=== PATIENT | male | born 1955 | race Asian ===

== ENCOUNTER 2022-02-16 17:46 | Inpatient (IN) | payer MEDICARE, MEDICAID ==
[~2022-02-16] VITALS: Ht 165.1 cm; Wt 56.8 kg
[2022-02-16] MEDS ORDERED: ibuprofen 200mg tablet PO ONE (18:05)
[2022-02-16] MEDS ORDERED: normal saline 1000ML IV soln IV ONE ×2 (18:15→18:35)
[2022-02-16] MEDS ORDERED: CefTRIAXone 2gm/D5W 50ml BAG 50 ML IV ONE (18:35)
[2022-02-16] MEDS ORDERED: methylPREDNISolone sod succ 125mg/2ml vial IV ONE (18:35)
[2022-02-16] MEDS ORDERED: magnesium 2GM in 50ml NS 50 ML IV ONE (18:35)
[2022-02-16 19:02] LABS: BASOPHILS # (AUTO) 0.1 X10'3 (0-0.2); BASOPHILS % (AUTO) 0.6 % (0-1); EOSINOPHILS # (AUTO) 0.2 X10'3 (0-0.9); EOSINOPHILS % (AUTO) 2.1 % (0-6); HEMATOCRIT 43.6 % (42.0-52.0); HEMOGLOBIN 13.9 g/dl (14.0-17.9); LYMPHOCYTES # (AUTO) 0.8 X10'3 (1.1-4.8); LYMPHOCYTES % (AUTO) 7.5 % (21-51); MEAN CORPUSCULAR HEMOGLOBIN 22.4 PG (27.0-31.0); MEAN CORPUSCULAR HGB CONC 31.9 g/dL (33.0-36.5); MEAN PLATELET VOLUME 7.8 FL (7.4-10.4); MONOCYTES # (AUTO) 0.6 X10'3 (0-0.9); MONOCYTES % (AUTO) 6.1 % (2-12); NEUTROPHILS # (AUTO) 8.8 X10'3 (1.8-7.7); NEUTROPHILS % (AUTO) 83.7 % (42-75); PLATELET COUNT 182 X10'3 (140-440); RED BLOOD COUNT 6.23 X10'6 (4.70-6.10); RED CELL DISTRIBUTION WIDTH 15.3 % (11.5-14.5); WHITE BLOOD COUNT 10.5 X10'3 (4.5-11.0)
[2022-02-16 19:20] LABS: ALANINE AMINOTRANSFERASE 30 U/L (12-78); ALBUMIN 3.4 G/DL (3.4-5.0); ALBUMIN/GLOBULIN RATIO 0.8 (1.1-1.5); ALKALINE PHOSPHATASE 91 IU/L (46-116); ANION GAP 5 (8-16); ASPARTATE AMINO TRANSFERASE 36 U/L (10-37); BILIRUBIN,TOTAL 0.3 MG/DL (0.1-1.0); BLOOD UREA NITROGEN 14 MG/DL (7-18); BUN/CREATININE RATIO 16.7 (5.4-32.0); CALCIUM 8.3 MG/DL (8.5-10.1); CHLORIDE 99 MMOL/L (99-107); CREATININE 0.84 MG/DL (0.60-1.10); GLUCOSE 104 MG/DL (70-104); POTASSIUM 4.2 MMOL/L (3.5-5.1); SODIUM 133 MMOL/L (135-145); TOTAL PROTEIN 7.5 G/DL (6.4-8.2); eGFR > 90 ML/MIN
[2022-02-16] MEDS ORDERED: albuterol 2.5 MG/3 ML nebule CONTNEB PRN (19:25)
[2022-02-16] MEDS ORDERED: ipratropium 0.5 MG/2.5ML nebule IH ONE (19:25)
[2022-02-16] MEDS ORDERED: oseltamivir phos 75mg capsule PO ONE (20:15)
[2022-02-16] MEDS ORDERED: mag hydrox/Alum hydrox/simeth 30ml oral suspension PO PRN (20:15)
[2022-02-16] MEDS ORDERED: HYDROcodone/acetaminophen 5mg/325mg tablet PO PRN (20:15)
[2022-02-16] MEDS ORDERED: ondansetron/PF 4mg/2ml inj IV PRN (20:15)
[2022-02-16] MEDS ORDERED: magnesium hydroxide 30ml (MOM) UD suspension PO PRN (20:15)
[2022-02-16] MEDS ORDERED: morphine 2 MG/ML inj. syringe IV PRN ×2 (20:15)
[2022-02-16] MEDS ORDERED: acetaminophen 325mg tablet PO PRN ×2 (20:15)
--- NOTE | 2022-02-16 21:15 | NUR ---
used the turnstile collector device in the pt room. there was no knockout machine operator option at this time for greg. call daughter for translation purposes.
--- NOTE | 2022-02-16 21:33 | NUR ---
I HAVE REVIEWED AND AGREE WITH [employer] VEHICLE DRIVER'S ASSESSMENT.
[2022-02-16 22:39] LABS: CLARITY,URINE CLEAR (Clear); COLOR,URINE STRAW (Yellow); GLUCOSE, URINE NEGATIVE (Neg); KETONES,URINE TRACE mg/dl (Neg); LEUKOCYTE ESTERASE ,URINE NEGATIVE (Neg); NITRITES, URINE NEGATIVE (Neg); OCCULT BLOOD,URINE TRACE-INTACT (Neg); PH,URINE 5.5 (4.8-8.0); PROTEIN,URINE NEGATIVE (Neg); UROBILINOGEN,URINE 0.2 E.U/dL (0.2-1.0)
[2022-02-16 22:44] LABS: SQUAMOUS EPITHELIAL CELL,UR FEW /LPF (FEW); UA COLLECTION TYPE VOIDED
[2022-02-16 22:45] LABS: BACTERIA,URINE NONE SEEN /HPF (Neg); RBC,URINE 0-2 /HPF (0-2); WBC,URINE 0-4 /HPF (0-4)
--- NOTE | 2022-02-16 23:17 | NUR ---
"ANA"-DAUGHTER/BELL STAFF: PHONE NUMBER [phone] Addendum: 02/16/22 at 2330 by AIMEUVAL GRIS -DAUGHTER/BELL STAFF: PHONE NUMBER [phone]
--- NOTE | 2022-02-16 23:31 | NUR ---
SPOKE WITH DAUGHTER REGARDING MEDICATION PT TAKES. PT IS CURRENTLY TAKING TYLENOL AT HOME FOR PAIN. NO OTHER MEDS LISTED AT THIS TIME. WILL UPDATE LIST NEEDED.
--- NOTE | 2022-02-17 00:49 | NUR ---
PT WAS MOVED FROM [facility] TO [facility] BED
[2022-02-17 07:28] LABS: BASOPHILS % (AUTO) 0.1 % (0-1); EOSINOPHILS % (AUTO) 0 % (0-6); LYMPHOCYTES # (AUTO) 0.5 X10'3 (1.1-4.8); MEAN PLATELET VOLUME 8.1 FL (7.4-10.4); MONOCYTES # (AUTO) 0.7 X10'3 (0-0.9); MONOCYTES % (AUTO) 5.2 % (2-12); NEUTROPHILS # (AUTO) 11.4 X10'3 (1.8-7.7); NEUTROPHILS % (AUTO) 90.7 % (42-75); PLATELET COUNT 187 X10'3 (140-440); WHITE BLOOD COUNT 12.6 X10'3 (4.5-11.0)
[2022-02-17 07:50] LABS: ALBUMIN 2.8 G/DL (3.4-5.0); ANION GAP 9 (8-16); BLOOD UREA NITROGEN 11 MG/DL (7-18); BUN/CREATININE RATIO 11.2 (5.4-32.0); CALCIUM 8.1 MG/DL (8.5-10.1); CHLORIDE 105 MMOL/L (99-107); CREATININE 0.98 MG/DL (0.60-1.10); GLUCOSE 167 MG/DL (70-104); POTASSIUM 4.3 MMOL/L (3.5-5.1); SODIUM 140 MMOL/L (135-145); TOTAL CARBON DIOXIDE 26.5 MMOL/L (24-32); eGFR 76 ML/MIN
[2022-02-17 08:04] LABS: HEMATOCRIT 42.6 % (42.0-52.0); HEMOGLOBIN 13.6 g/dl (14.0-17.9); RED BLOOD COUNT 6.16 X10'6 (4.70-6.10)
[2022-02-17 08:05] LABS: MEAN CORPUSCULAR HEMOGLOBIN 22.1 PG (27.0-31.0); MEAN CORPUSCULAR VOLUME 69.1 FL (78-98); RED CELL DISTRIBUTION WIDTH 14.8 % (11.5-14.5)
[2022-02-17] MEDS ORDERED: magnesium 4gm in 100ml NS 100 ML IV PRN (08:30)
[2022-02-17] MEDS ORDERED: magnesium Cl slow-release 64mg tablet PO PRN (08:30)
[2022-02-17] MEDS ORDERED: potassium Cl 20 mEq SR tablet PO PRN ×2 (08:30)
[2022-02-17] MEDS ORDERED: potassium Cl 40MEQ/1/2NS 520ml 520 ML IV PRN (08:30)
[2022-02-17 08:37] LABS: MICROCYTOSIS 2+; PLATELET ESTIMATE NORMAL
[2022-02-17 08:38] LABS: SPHEROCYTES 1+
[2022-02-17] MEDS: docusate sod 100mg capsule PO SCH ×2 (08:39→21:16)
[2022-02-17] MEDS: furosemide 20 MG/2 ML vial IV SCH ×2 (08:39→21:16)
[2022-02-17] MEDS: oseltamivir phos 75mg capsule PO SCH ×2 (08:40→21:16)
[2022-02-17] MEDS: enoxaparin 40mg/0.4ml syringe SUBCUT SCH (08:40)
[2022-02-17] MEDS ORDERED: ACET-1008 PO (15:22)
[2022-02-17] MEDS: K and/or MAG REPLACEMENT MC SCH (19:03)
[2022-02-17 19:36] VITALS: BP 141/97
[2022-02-17 22:00] VITALS: BP 147/91
[2022-02-18 02:00] VITALS: BP 144/84
[2022-02-18 06:00] VITALS: BP 142/90
--- NOTE | 2022-02-18 06:32 | NUR ---
Patient in room PCU 3019. I have received report from Diane and had the opportunity to ask questions and assume patient care.
[2022-02-18 06:52] LABS: ALBUMIN 3.1 G/DL (3.4-5.0); ANION GAP 7 (8-16); BLOOD UREA NITROGEN 26 MG/DL (7-18); BUN/CREATININE RATIO 31.3 (5.4-32.0); CALCIUM 8.9 MG/DL (8.5-10.1); CHLORIDE 100 MMOL/L (99-107); CREATININE 0.83 MG/DL (0.60-1.10); GLUCOSE 104 MG/DL (70-104); MAGNESIUM 2.2 MG/DL (1.5-2.4); PHOSPHORUS 2.3 MG/DL (2.3-4.5); POTASSIUM 3.7 MMOL/L (3.5-5.1); SODIUM 138 MMOL/L (135-145); TOTAL CARBON DIOXIDE 31.3 MMOL/L (24-32); eGFR > 90 ML/MIN
[2022-02-18 06:56] LABS: BASOPHILS # (AUTO) 0.1 X10'3 (0-0.2); BASOPHILS % (AUTO) 0.4 % (0-1); EOSINOPHILS # (AUTO) 0.1 X10'3 (0-0.9); EOSINOPHILS % (AUTO) 1.1 % (0-6); HEMATOCRIT 45.1 % (42.0-52.0); HEMOGLOBIN 14.5 g/dl (14.0-17.9); LYMPHOCYTES # (AUTO) 1.6 X10'3 (1.1-4.8); LYMPHOCYTES % (AUTO) 12.5 % (21-51); MEAN CORPUSCULAR HEMOGLOBIN 22.3 PG (27.0-31.0); MEAN CORPUSCULAR HGB CONC 32.1 g/dL (33.0-36.5); MEAN CORPUSCULAR VOLUME 69.5 FL (78-98); MEAN PLATELET VOLUME 8.7 FL (7.4-10.4); MONOCYTES # (AUTO) 1.2 X10'3 (0-0.9); MONOCYTES % (AUTO) 9.2 % (2-12); NEUTROPHILS # (AUTO) 9.6 X10'3 (1.8-7.7); NEUTROPHILS % (AUTO) 76.8 % (42-75); PLATELET COUNT 227 X10'3 (140-440); RED BLOOD COUNT 6.49 X10'6 (4.70-6.10); WHITE BLOOD COUNT 12.5 X10'3 (4.5-11.0)
[2022-02-18] MEDS: K and/or MAG REPLACEMENT MC SCH (07:34)
[2022-02-18] MEDS: docusate sod 100mg capsule PO SCH (09:28)
[2022-02-18] MEDS: furosemide 20 MG/2 ML vial IV SCH (09:28)
[2022-02-18] MEDS: enoxaparin 40mg/0.4ml syringe SUBCUT SCH (09:29)
[2022-02-18] MEDS: oseltamivir phos 75mg capsule PO SCH (09:33)
[2022-02-18 11:30] VITALS: BP 119/72
[2022-02-18] MEDS ORDERED: HYDR25TA5 PO (11:37)
[2022-02-18] MEDS ORDERED: LISI20TA28 PO (11:37)
[2022-02-18] MEDS ORDERED: TAM75C PO (11:37)
--- NOTE | 2022-02-18 13:40 | NUR ---
LEFT A MESSAGE FOR GRIS, PT'S DAUGHTER, RE: PT DISCHARGE AND READY TO DISCUSS A DISCHARGE INSTRUCTION AND TRANSPORTATION ARRANGEMENT.
--- NOTE | 2022-02-18 14:41 | NUR ---
WENT OVER DISCHARGE INSTRUCTIONS WITH PT AND HIS DAUGHTER. PROVIDED EDUCATIONS RE: DISCHARGE MEDICATIONS AND STRESSED THE IMPORTANCE OF FOLLOWING UP WITH PCP. PT AND HIS DAUGHTER VERBALIZED UNDERSTANDING. GRIS, DAUGHTER, PICKED UP PT IN HER CAR AROUND 1430.
--- NOTE | 2022-02-26 12:08 | NUR ---
Case Management DC follow up:Spoke with patient's son via telephone.S/P: Patient Reports: Patient's son verbalized Patient has improved; doing good.Patient 's son verbalized they are unable to complete interview at this time.Verbalizes they are driving and will be out of town for at least a week.
== END 2022-02-18 14:36 | disposition home or self-care (01) | DRG 193 ==
LOC: ER 17:48 → ED HOLD 20:28 → PCU 3S 02-17 19:15
PROVIDERS: ADMIT Internal Medicine; ATTEND Family Medicine
DX: J10.01 Influenza due to other identified influenza virus with the same other identified influenza virus pneumonia (principal); I50.23 Acute on chronic systolic (congestive) heart failure; R65.10 Systemic inflammatory response syndrome (SIRS) of non-infectious origin without acute organ dysfunction; J44.0 Chronic obstructive pulmonary disease with (acute) lower respiratory infection; J45.901 Unspecified asthma with (acute) exacerbation; J44.1 Chronic obstructive pulmonary disease with (acute) exacerbation; I11.9 Hypertensive heart disease without heart failure; Z20.822 Contact with and (suspected) exposure to COVID-19; F17.210 Nicotine dependence, cigarettes, uncomplicated; Z71.6 Tobacco abuse counseling
CPT/HCPCS: 36415; 71045; 80048; 80053; 81001; 83605; 83735; 83880; 84100; 84145; 84484; 85008; 85025; 87040; 87081; 87502; 87503; 87635; 93005; 93306; 94640; 94760; 96361; 96365; 96367; 96375; 99285; A4615; A7015; C9803; G0378; J0696; J1650; J1940; J2930; J3475; J7030

== ENCOUNTER 2022-08-22 05:36 | Emergency (ER) | payer MEDICARE, MEDICAID ==
[~2022-08-22] VITALS: Ht 165.1 cm; Wt 56.8 kg
[~2022-08-22 05:36] MED LIST: ACET-1008 PO; HYDR25TA5 PO; TAM75C PO
[2022-08-22] MEDS ORDERED: methylPREDNISolone sod succ 125mg/2ml vial IV ONE (06:50)
[2022-08-22] MEDS ORDERED: ipratropium/albuterol 3ml nebule NEB ONE (06:50)
--- NOTE | 2022-08-22 06:59 | NUR ---
RN OBTAINED SPUTUM SAMPLE AND SENT IT TO LAB. RN PAGED RT FOR RT TX.
[2022-08-22] MEDS ORDERED: ondansetron/PF 4mg/2ml inj IV ONE (07:05)
[2022-08-22] MEDS ORDERED: normal saline 1000ml 1,000 ML IV ONE (07:05)
[2022-08-22] MEDS ORDERED: albuterol 2.5 MG/3 ML nebule CONTNEB ONE (08:04)
[2022-08-22 08:05] LABS: BASOPHILS # (AUTO) 0.1 X10'3 (0-0.2); BASOPHILS % (AUTO) 0.7 % (0-1); EOSINOPHILS # (AUTO) 1.6 X10'3 (0-0.9); HEMATOCRIT 37.8 % (42.0-52.0); HEMOGLOBIN 11.9 g/dl (14.0-17.9); LYMPHOCYTES # (AUTO) 2.4 X10'3 (1.1-4.8); LYMPHOCYTES % (AUTO) 32.4 % (21-51); MEAN CORPUSCULAR HEMOGLOBIN 21.9 PG (27.0-31.0); MEAN CORPUSCULAR HGB CONC 31.5 g/dL (33.0-36.5); MEAN CORPUSCULAR VOLUME 69.6 FL (78-98); MEAN PLATELET VOLUME 7.5 FL (7.4-10.4); MONOCYTES # (AUTO) 0.7 X10'3 (0-0.9); NEUTROPHILS # (AUTO) 2.8 X10'3 (1.8-7.7); NEUTROPHILS % (AUTO) 36.9 % (42-75); PLATELET COUNT 262 X10'3 (140-440); RED BLOOD COUNT 5.44 X10'6 (4.70-6.10); RED CELL DISTRIBUTION WIDTH 15.6 % (11.5-14.5); WHITE BLOOD COUNT 7.5 X10'3 (4.5-11.0)
--- NOTE | 2022-08-22 08:14 | NUR ---
LAB CALLED AND STATED THAT PT BG IS 66. RN IS STILL TRYING TO GET IV. RN PROVIDED 118 CC APPLE JUICE.
[2022-08-22 08:25] LABS: ALANINE AMINOTRANSFERASE 21 U/L (12-78); ALBUMIN 2.7 G/DL (3.4-5.0); ALBUMIN/GLOBULIN RATIO 0.9 (1.1-1.5); ALKALINE PHOSPHATASE 64 IU/L (46-116); ANION GAP -1 (8-16); ASPARTATE AMINO TRANSFERASE 21 U/L (10-37); BILIRUBIN,TOTAL 0.1 MG/DL (0.1-1.0); BLOOD UREA NITROGEN 23 MG/DL (7-18); BUN/CREATININE RATIO 26.1 (10.0-20.0); CALCIUM 7.5 MG/DL (8.5-10.1); CHLORIDE 111 MMOL/L (99-107); CREATININE 0.88 MG/DL (0.60-1.10); GLUCOSE 87 MG/DL (70-104); POTASSIUM 4.2 MMOL/L (3.5-5.1); SODIUM 142 MMOL/L (135-145); TOTAL CARBON DIOXIDE 31.9 MMOL/L (24-32); TOTAL PROTEIN 5.8 G/DL (6.4-8.2); eGFR 86 ML/MIN
[2022-08-22 08:28] LABS: TOTAL CELLS COUNTED 100
[2022-08-22 08:31] LABS: HYPOCHROMASIA 1+; MICROCYTOSIS 2+; PLATELET ESTIMATE NORMAL; STOMATOCYTES FEW; TEAR DROP CELLS FEW
--- NOTE | 2022-08-22 09:17 | NUR ---
RT STATED THAT THEY WOULD GIVE RT TX. TX NOT SIGNED OFF ON THE MAY. RN PAGED RT TO SIGN OFF MED.
[2022-08-22] MEDS ORDERED: BUDE10.7 INH (09:28)
[2022-08-22] MEDS ORDERED: ALBU6.7H14 INH (09:28)
[2022-08-22 10:00] VITALS: BP 127/74
== END 2022-08-22 10:02 | disposition home or self-care (01) ==
LOC: ER 05:37
DX: J44.1 Chronic obstructive pulmonary disease with (acute) exacerbation (principal); F17.200 Nicotine dependence, unspecified, uncomplicated
CPT/HCPCS: 36415; 71045; 80053; 83880; 85007; 85025; 85651; 87070; 93005; 94640; 96374; 96375; 99285; J2405; J2930; J7030; J7040; 94644; 94760

== ENCOUNTER 2024-04-26 20:29 | Emergency (ER) | payer MEDICARE, MEDICAID ==
[~2024-04-26] VITALS: Ht 175.3 cm; Wt 75.0 kg
[~2024-04-26 20:29] MED LIST changes: +ALBU6.7H14 INH; +BUDE10.7 INH
[2024-04-26 20:37] VITALS: TEMP 98.5
[2024-04-26 21:08] LABS: BASOPHILS # (AUTO) 0.1 X10'3 (0-0.2); BASOPHILS % (AUTO) 1.1 % (0-1); EOSINOPHILS % (AUTO) 17.5 % (0-6); HEMATOCRIT 38.7 % (42.0-52.0); HEMOGLOBIN 12.1 g/dl (14.0-17.9); LYMPHOCYTES # (AUTO) 1.5 X10'3 (1.1-4.8); LYMPHOCYTES % (AUTO) 26.3 % (21-51); MEAN CORPUSCULAR HEMOGLOBIN 22.4 PG (27.0-31.0); MEAN CORPUSCULAR HGB CONC 31.2 g/dL (33.0-36.5); MEAN CORPUSCULAR VOLUME 71.9 FL (78-98); MEAN PLATELET VOLUME 7.6 FL (7.4-10.4); MONOCYTES # (AUTO) 0.5 X10'3 (0-0.9); MONOCYTES % (AUTO) 9.3 % (2-12); NEUTROPHILS # (AUTO) 2.6 X10'3 (1.8-7.7); NEUTROPHILS % (AUTO) 45.8 % (42-75); PLATELET COUNT 238 X10'3 (140-440); RED BLOOD COUNT 5.39 X10'6 (4.70-6.10); RED CELL DISTRIBUTION WIDTH 15.7 % (11.5-14.5); WHITE BLOOD COUNT 5.7 X10'3 (4.5-11.0)
[2024-04-26 21:17] LABS: ALANINE AMINOTRANSFERASE 61 U/L (12-78); ALBUMIN/GLOBULIN RATIO 0.8 (1.1-1.5); ALKALINE PHOSPHATASE 88 IU/L (46-116); ANION GAP 5 (8-16); ASPARTATE AMINO TRANSFERASE 51 U/L (10-37); BILIRUBIN,TOTAL 0.4 MG/DL (0.1-1.0); BLOOD UREA NITROGEN 14 MG/DL (7-18); BUN/CREATININE RATIO 16.3 (10.0-20.0); CALCIUM 7.6 MG/DL (8.5-10.1); CHLORIDE 105 MMOL/L (99-107); CREATININE 0.86 MG/DL (0.60-1.10); GLUCOSE 97 MG/DL (70-104); SODIUM 140 MMOL/L (135-145); TOTAL CARBON DIOXIDE 30.4 MMOL/L (24-32); TOTAL PROTEIN 6.9 G/DL (6.4-8.2); eCRCL 80 ML/MIN; eGFR 88 ML/MIN
[2024-04-26 21:26] LABS: PRO BRAIN NATRIURETIC PEPTIDE 250 PG/ML (0-125)
[2024-04-26] MEDS ORDERED: ALBU8HFA INH (23:03)
[2024-04-26] MEDS ORDERED: AZIT-164 PO (23:03)
[2024-04-26] MEDS ORDERED: PRED20TA PO (23:03)
[2024-04-26] MEDS: ipratropium/albuterol 3ml nebule NEB ONE (23:10)
[2024-04-26 23:13] VITALS: PULSE 103; RESP 18; O2SAT 95
[2024-04-26] MEDS: azithromycin 250mg tablet PO ONE (23:27)
[2024-04-26] MEDS: dexamethasone 4mg tablet PO ONE (23:27)
[2024-04-26 23:38] VITALS: BP 165/93
[2024-04-26] MEDS: albuterol 2.5 MG/3 ML nebule NEB ONE (23:46)
[2024-04-26 23:47] VITALS: PULSE 101; RESP 18; O2SAT 97
[2024-04-26 23:54] VITALS: PULSE 107; RESP 18; O2SAT 100
== END 2024-04-27 00:13 | disposition home or self-care (01) ==
LOC: ER 20:30
DX: J44.1 Chronic obstructive pulmonary disease with (acute) exacerbation (principal); F17.210 Nicotine dependence, cigarettes, uncomplicated; Z20.822 Contact with and (suspected) exposure to COVID-19
CPT/HCPCS: 36415; 71045; 80053; 83880; 84484; 85025; 87502; 87503; 87811; 93005; 94640; 94760; 99285